=== PATIENT | male | born 1980 ===

== ENCOUNTER 2024-07-17 08:22 | Inpatient (IN) | payer BC, OTHER ==
[~2024-07-17] VITALS: Ht 177.8 cm; Wt 86.0 kg
[2024-07-17] VITALS (21 sets, daily range): BP systolic 120–145; BP diastolic 65–116
[~2024-07-17 08:22] MED LIST: Budeprion Xl300 MG PO; CLOP75 PO
--- NOTE | 2024-07-17 10:17 | NUR ---
ADMIT PT ARRIVED TO ICU 14 A DIRECT ADMIT AT 0925. PT IS AWAKE, ALERT, AND ORIENTED. PT WALKED FROM WAITING ROOM TO ICU BED WITHOUT DIFFICULTY. IV PLACED TO RIGHT WRIST. VITAL SIGNS STABLE, PT ON ROOM AIR. DR BOBO NOTIFIED PT HERE IN UNIT FOR ADMIT.
[2024-07-17] MEDS ORDERED: FentaNYL Citrate 50 MCG/ML 2 ML Injection IV PRN (11:45)
[2024-07-17] MEDS ORDERED: FLU VACC TS2024-25(6MOS UP)/PF 45 MCG/0.5 ML SYRINGE IM SCH (11:45)
[2024-07-17 12:52] LABS: BASOPHILS ABSOLUTE AUTO 0.06 K/mm3 (0.00-0.23); BASOPHILS PERCENT AUTO 1 % (0-2); EOSINOPHILS ABSOLUTE AUTO 0.16 K/mm3 (0.00-0.68); EOSINOPHILS PERCENT AUTO 2 % (0-6); Hematocrit 45.7 % (37.0-53.0); Hemoglobin 15.4 g/dL (13.5-17.5); IMMATURE GRAN ABSOLUTE AUTO 0.06 K/mm3 (0.00-0.10); IMMATURE GRAN PERCENT AUTO 1 % (0-1); LYMPHOCYTES ABSOLUTE AUTO 2.21 K/mm3 (0.84-5.20); LYMPHOCYTES PERCENT AUTO 21 % (21-46); MONOCYTES ABSOLUTE AUTO 0.66 K/mm3 (0.16-1.47); MONOCYTES PERCENT AUTO 6 % (4-13); Mean Corpuscular HGB 32.2 pg (26.0-34.0); Mean Corpuscular HGB Conc 33.7 g/dL (31.5-36.5); Mean Corpuscular Volume 95 fL (80-100); Mean Platelet Volume 10.3 fL (9.1-12.4); NEUTROPHILS ABSOLUTE AUTO 7.46 K/mm3 (1.96-9.15); NEUTROPHILS PERCENT AUTO 70 % (41-73); Platelet Count 295 K/mm3 (150-400); RDW Coefficient Variation 14.2 % (11.7-14.2); RDW Standard Deviation 50.2 fL (35.1-46.3); Red Blood Cell Count 4.79 M/mm3 (4.30-5.90); White Blood Cell Count 10.61 K/mm3 (4.00-11.30)
[2024-07-17 13:21] LABS: Albumin, Blood 3.5 g/dL (3.4-5.0); Albumin/Globulin Ratio 0.9 (0.8-1.8); Bilirubin, Total 0.4 mg/dL (0.1-1.0); Bun/Creatinine Ratio 18.6 (12.0-20.0); Calcium, Blood 8.8 mg/dL (8.5-10.1); Creatinine, Blood 0.75 mg/dL (0.60-1.20); Globulin, Blood 3.8 g/dL (2.2-4.0); Potassium, Blood 4.7 mmol/L (3.5-5.5); Total Protein, Blood 7.3 g/dL (6.4-8.2)
[2024-07-17] MEDS ORDERED: NS 100 ML IV ONE (16:35)
[2024-07-17] MEDS ORDERED: NS 1,000 ML IV ONE ×2 (16:36→16:49)
[2024-07-17] MEDS ORDERED: Heparin Sodium 1000 Units/ML 10ML MDV ONE ×2 (16:36→16:49)
[2024-07-17] MEDS ORDERED: NS 250 ML IV ONE (16:37)
[2024-07-17] MEDS ORDERED: Midazolam HCl 1MG / ML 2ML Vial ONE ×2 (16:49→17:37)
[2024-07-17] MEDS ORDERED: FentaNYL Citrate 50 MCG/ML 2 ML Injection ONE (16:49)
--- NOTE | 2024-07-17 16:54 | NUR ---
PT TO FOOT GATHERER PT VOICED WANTING TO LEAVE AMA IF UNABLE TO GO FOR ANGIO PROCEDURE THIS EVENING. DR MEJIA SPOKE WITH PT. PT THEN TAKEN TO FOOT GATHERER SHORTLY AFTER SPEAKING WITH DR MEJIA.
[2024-07-17] MEDS ORDERED: Alteplase Recombinant 2 MG / Vial ONE (17:30)
[2024-07-17] MEDS ORDERED: Nitroglycerin 2 MG/20 ML BTL ONE (17:39)
--- NOTE | 2024-07-17 18:20 | NUR ---
SHIFT SUMMARY PT HAS REMAINED AWAKE, ALERT, AND ORIENTED THIS SHIFT. PT HAS DENIED PAIN OR N/T TO RIGHT FOOT. PT TAKEN TO PERSONAL COMPUTER NETWORK ENGINEER THIS EVENING. PT RETURNED TO ICU ROOM AT 1810 S/P ANGIO. PT WITH LEFT FEMORAL ACCESS SITE WITH DRESSING C/D/I. NO OOZING, HEMATOMA OR TENDERNESS AT SITE. PIV SALINE LOCKED. PT VERBALIZED UNDERSTANDING OF LAYING FLAT FOR 4 HOURS BEFORE ANY HIP FLEXION. VITAL SIGNS STABLE. PT SIGNIFICANT OTHER AT BEDSIDE AT THIS TIME. DR MEJIA TO PUT IN HEPARIN ORDERS PER PERSONAL COMPUTER NETWORK ENGINEER REPORT. WILL CONTINUE TO MONITOR AND REPORT OFF TO ONCOMING RN.
[2024-07-17] MEDS ORDERED: ChlordiazePOXIDE 25 MG Cap PO PRN ×2 (20:10→22:05)
[2024-07-17] MEDS ORDERED: LORazepam 2 MG/ML 1ML Injection IV PRN (20:10)
--- NOTE | 2024-07-17 20:17 | NUR ---
UPDATE ASSUMED CARE OF PT AT 1900, PT AWAKE AND ALERT ORIENTED X4 LYING IN BED, C/O PAIN TO RIGHT FOOT RATED A 3 ON SCALE ON 0-10, REFUSED OFFER OF PRN MEDS, VSS, + PULSES TO BLE, ANGIOSEAL TO LEFT FEMORAL SITE CLEAN DRY AND INTACT, SOF TO TOUCH , NO HEMATOMA OR BLEEDING NOTED, DENIES PAIN TO INSERTION SITE WITH PALPATION, PT REMINDED TO KEEP LEFT LEG STRAIGHT UNTIL 2009, VOICES UNDERSTANDING. VISITOR AT BEDSIDE AT 1930 WITH FOOD FROM [employer]. 1999 CIWA SCORE OF 8, NOTED FOREHEAD WITH BEADS OF SWEAT, PT RESTLESS, REQUESTING TO GO OUTSIDE, EDUCATED PT ON NOT BEING ABLE TO LEAVE ROOM DUE TO CONTINOUS HEART MONITORING AND RISK FOR BLEEDING AFTER TODAY PROCEDURE. PT STATES "WELL FUCK MY LIFE" REFUSED OFFER OF NICOTINE PATCH. CALLED AND SPOKE WITH OF HILARY OF 8 , NEW ORDERS RECEIVED. PT REFUSES ATIVAN OR LIBRIUM FOR CIWA STATES" I JUST NEED TO LEAVE" GIRLFRIEND JUST SHOWED UP TO ROOM PER PT PHONE CALL WITH PT THROWING HIS URINAL ACROSS ROOM AND WANTING TO LEAVE
--- NOTE | 2024-07-17 20:31 | NUR ---
UPDATE GIRLFRIEND AT BEDSIDE , DISCUSSED WITH PT RISK FOR BLEEDING OUT IF HE LEAVES AMA CHANCE, PT STATES " I ALREADY KNOW THAT ISNT GOING TO HAPPEN, BUT IM NOT LEAVING, I JUST WANT TO BE LEFT THE FUCK ALONE THE REST OF THE NIGHT" PT CONTINUES TO REFUSE ATIVAN. LIBRIUM OR FENTANYL. CHARGE NURSE MADE AWARE OF PT BEHAVIOR.
--- NOTE | 2024-07-17 21:33 | NUR ---
UPDATE 2049 PT AGREES TO STAY AND C/O PAIN TO RIGHT FOOT RATED AT 6 ON SCALE OF 0-10, AGREES TO PRN PAIN MEDICATIONS AFTER TALKING WITH GIRLFRIEND AT BEDSIDE, CIWA DONE AT THIS TIME WITH SCORE OF 12, PT MEDICATED WITH 25 MCG FENTANYL AND 1 MG ATIVAN IVP AT THIS TIME, TOLERATED WELL 2114 PT AWAKE AND ALERT, MORE CALM AND RELAXED, APOLOGIZES FOR IRRITABILITY EARIER AND THANKS THIS NURSE FOR THE MEDICATION, SIDE RAILS UP X2 CALL LIGHT IN REACH
[2024-07-18] VITALS (10 sets, daily range): BP systolic 119–139; BP diastolic 68–85
[2024-07-18 03:40] LABS: BASOPHILS ABSOLUTE AUTO 0.06 K/mm3 (0.00-0.23); BASOPHILS PERCENT AUTO 1 % (0-2); EOSINOPHILS ABSOLUTE AUTO 0.21 K/mm3 (0.00-0.68); EOSINOPHILS PERCENT AUTO 2 % (0-6); Hematocrit 44.2 % (37.0-53.0); IMMATURE GRAN ABSOLUTE AUTO 0.04 K/mm3 (0.00-0.10); IMMATURE GRAN PERCENT AUTO 0 % (0-1); LYMPHOCYTES ABSOLUTE AUTO 2.39 K/mm3 (0.84-5.20); LYMPHOCYTES PERCENT AUTO 22 % (21-46); MONOCYTES ABSOLUTE AUTO 0.88 K/mm3 (0.16-1.47); MONOCYTES PERCENT AUTO 8 % (4-13); Mean Corpuscular HGB 32.3 pg (26.0-34.0); Mean Corpuscular HGB Conc 33.9 g/dL (31.5-36.5); Mean Corpuscular Volume 95 fL (80-100); Mean Platelet Volume 9.7 fL (9.1-12.4); NEUTROPHILS ABSOLUTE AUTO 7.08 K/mm3 (1.96-9.15); NEUTROPHILS PERCENT AUTO 66 % (41-73); Platelet Count 304 K/mm3 (150-400); RDW Standard Deviation 49.1 fL (35.1-46.3); Red Blood Cell Count 4.65 M/mm3 (4.30-5.90); White Blood Cell Count 10.66 K/mm3 (4.00-11.30)
[2024-07-18 04:00] LABS: Anion Gap 12 mmol/L (3-11); Blood Urea Nitrogen 20 mg/dL (8-24); Bun/Creatinine Ratio 25.4 (12.0-20.0); CHOL/HDL RATIO 4.8; CO2, Blood 25 mmol/L (21-32); Calcium, Blood 8.9 mg/dL (8.5-10.1); Chloride, Blood 106 mmol/L (98-108); Cholesterol 194 mg/dL (50-200); Creatinine, Blood 0.79 mg/dL (0.60-1.20); Glomerular Filtration Rate 114 (60-); Glucose, Blood 109 mg/dL (70-99); HDL Cholesterol 40 mg/dL (>39); LDL/HDL RATIO Unable to Calculate; Low Density Lipoprotein Chol Unable to Calculate mg/dL (0-110); Potassium, Blood 4.2 mmol/L (3.5-5.5); Sodium, Blood 139 mmol/L (136-145); Triglycerides 443 mg/dL (30-160); Very Low Density Lipoprot Chol Unable to Calculate mg/dL (6-32)
--- NOTE | 2024-07-18 06:12 | NUR ---
SHIFT SUMMARY CIWA MAX SCORE OF 12, MEDICATED WITH ATIVAN X1, FENTANYL X1 FOR PAIN PER EMAR, VSS, SB-SSR 56-80s, AFEBRILE, PT RESTING QUIETLY WITH EYES CLOSED RESP EVEN AND UNLABORED ON RA, NO DISTRESS NOTED, LEFT FEMORAL INSERTION SITE REMAINS CLEAN DRY AND INTACT WITH NO HEMATOMA, BLEEDING OR TENDERNES NOTED
--- NOTE | 2024-07-18 08:59 | NUR ---
ASSUMED CARE OF PATIENT AT APPROXIMATELY 0700. REPORT RECEIVED FROM ANTHONY MONTANEZ. PT AWAKE IN BED, INTERACTING APPROPRIATELY WITH STAFF DURING BESIDE REPORT. CONTINOUS CARDIAC MONITORING IN PLACE SHOWS SR, BP STABLE. ON RA WITH O2 SATURATION > 92%. ANGIOSEAL TO L FEM ACCESS SITE C/D/I, NO HEMATOMA/BLEEDING, NONTENDER. NO ACUTE NEEDS IDENTIFIED AT THIS TIME. SEE SHIFT ASSESSMENT FOR FULL DETAILS.
[2024-07-18] MEDS ORDERED: Enoxaparin 40 MG/0.4 ML SYR SC SCH (09:00)
[2024-07-18] MEDS ORDERED: XARELTO20 MG PO ×2 (09:30→09:31)
[2024-07-18] MEDS ORDERED: GEMFIBROZIL PO (09:30)
[2024-07-18] MEDS ORDERED: Rivaroxaban 10 MG Tab PO SCH (10:00)
--- NOTE | 2024-07-18 10:53 | NUR ---
DISCHARGE THIS RN REVIEWED DISCHARGE PACKET WITH PT AND S/O WITH PT'S PERMISSION. PT VERBALIZED UNDERSTANDING TO INSTRUCTIONS. PIV TO L WRIST REMOVED, PT LEFT WITH S/O AT 0955.
[2024-07-20 05:34] LABS: CARDIOLIPIN ANTIBODY IGG 12 GPL (<=14); CARDIOLIPIN ANTIBODY IGM <10 MPL (<=12)
[2024-07-20 11:07] LABS: B2GLYCOPROTEIN 1, IGG ANTIBODY <10 SGU (<=20); B2GLYCOPROTEIN 1, IGM ANTIBODY <10 SMU (<=20)
[2024-07-20 12:05] LABS: PROTEIN C FUNCTIONAL 172 % (83-168)
[2024-07-20 13:34] LABS: ANTI-XA QUALITATIVE INTERP Not Performed (Not Present); ANTICOAG MEDICATION NEUTRALIZ Not Performed (Not Performed); DRVVT 1:1 MIX RATIO Not Performed (<=1.20); DRVVT CONFIRMATION RATIO Not Performed (<=1.20); DRVVT SCREEN RATIO 1.09 (<=1.20); HEXAGONAL PHOSPHOLIPID CONFIRM Not Performed s (<=7.9); NEUTRALIZED DRVVT SCREEN RATIO Not Performed (<=1.20); NEUTRALIZED PTT-LA RATIO Not Performed (<=1.20); PROTHROMBIN TIME (PT) 11.8 s (12.0-15.5); PTT-LA RATIO 0.88 (<=1.20); THROMBIN TIME (TT) Not Performed s (<=19.5)
[2024-07-20 14:00] LABS: APC RESISTANCE 3.29 (>=2.00); FACTOR V LEIDEN BY PCR Not Done; FACV REF SPECIMEN Not Done
[2024-07-20 14:51] LABS: HOMOCYSTEINE, TOTAL 13 umol/L (0-15)
[2024-07-20 15:30] LABS: ANTITHROMBIN, ENZYM (ACTIVITY) 128 % (76-128)
[2024-07-20 20:33] LABS: PROTEIN S AG FREE 121 % (74-147)
== END 2024-07-18 09:55 | disposition home or self-care (01) | DRG 279 ==
LOC: PCU 08:22 → ICUE 09:15
PROVIDERS: ADMIT Internal Medicine
PROC: 04FP3Z0 Fragmentation of Right Anterior Tibial Artery, Percutaneous Approach, Ultrasonic (ICD-10-PCS; principal; 2024-07-17)
PROC: 047P3ZZ Dilation of Right Anterior Tibial Artery, Percutaneous Approach (ICD-10-PCS; 2024-07-17)
PROC: B41DZZZ Fluoroscopy of Aorta and Bilateral Lower Extremity Arteries (ICD-10-PCS; 2024-07-17)
DX: I70.221 Atherosclerosis of native arteries of extremities with rest pain, right leg (principal); F17.210 Nicotine dependence, cigarettes, uncomplicated; Z79.01 Long term (current) use of anticoagulants; Z79.02 Long term (current) use of antithrombotics/antiplatelets; Z79.899 Other long term (current) drug therapy; F32.A Depression, unspecified
CPT/HCPCS: 36415; 37228; 75625; 75716; 75774; 76937; 80048; 80053; 80061; 85025; 93306; 99152; 99153; A9270; C1725; C1760; C1769; C1887; C1894; J1644; J2060; J2250; J2997; J3010; J7030; J7050; Q9967